=== PATIENT | female | born 1945 | race Caucasian/White ===

== ENCOUNTER 2016-11-30 10:02 | Emergency (ER) | payer MEDICARE ==
[2016-11-30 10:45] VITALS: TEMP 97.2
--- NOTE | 2016-11-30 11:04 | XR ---
EXAMINATION TYPE: XR knee complete LT DATE OF EXAM ORDERED: 11/30/2016 HISTORY: Pain. COMPARISON: None. FINDINGS: There is medial joint space loss. There are remodeling changes in all 3 compartments. Ther e is no evidence of chondrocalcinosis. No acute osseous lesion is seen. No joint effusion is seen. IMPRESSION: OSTEOARTHRITIS.
--- NOTE | 2016-11-30 12:18 | CT ---
EXAMINATION TYPE: CT knee LT wo con DATE OF EXAM: 11/30/2016 COMPARISON: Seen in the left knee x-ray HISTORY: Left knee injury or fall 3 weeks ago with persistent pain CT DLP: 456.90 mGycm Automated exposure control for dose reduction was used. FINDINGS: No acute fracture or dislocation in left knee is confirmed. There is moderate to severe tricompartmen t joint space loss and spurring, findings most pronounced medial tibiofemoral compartment. There is s ubchondral cystic change also present. There is spurring from anterior superior patellar distal quadr iceps tendon attachment. There is small suprapatellar joint effusion. There is 5 x 3 mm well-corticat ed ossific fragment near tibial condyles on coronal image 26 could reflect product of old trauma or o steoarthritis. No concerning focal fluid collection is seen. Muscle bulk is fairly well-maintained. IMPRESSION: NO ACUTE FRACTURE OR DISLOCATION IN LEFT KNEE IS EVIDENT.
[2016-11-30 12:29] VITALS: BP 152/71; PULSE 88; RESP 22
--- NOTE | 2016-11-30 12:50 | ED ---
General Adult HPI - General Chief complaint: Extremity Injury, Lower Stated complaint: left knee injury Time Seen by Provider: 11/30/16 10:42 Source: patient, RN notes reviewed Mode of arrival: wheelchair Limitations: no limitations - History of Present Illness Initial comments: Patient is 71-year-old female who presents emergency room today with chief complaint of left-sided knee pain. She does admit that she had a fall 2 weeks ago. States that today was locked up on her 7 difficult time extending history. States having to time ambulate. Denies any other complaints or symptoms. States she did talk to orthopedic doctor advised come here to the emergency room for evaluation. Patient denies any recent fever, chills, shortness of breath, chest pain, back pain, abdominal pain, nausea or vomiting, numbness or tingling, dysuria or hematuria, constipation or diarrhea, headaches or visual changes, or any other complaints. - Related Data Home Medications Medication Instructions Recorded Confirmed Calcium Carbonate/Vitamin D3 1 tab PO DAILY 11/30/16 11/30/16 [Calcium 600-Vit D3 400 Caplet] Ibuprofen [Motrin] 800 mg PO TID PRN 11/30/16 11/30/16 Leflunomide [Arava] 20 mg PO DAILY 11/30/16 11/30/16 Metoprolol Tartrate [Lopressor] 50 mg PO BID 11/30/16 11/30/16 Multivitamins, Thera [Multivitamin 1 tab PO DAILY 11/30/16 11/30/16 (formulary)] Simvastatin [Zocor] 40 mg PO HS 11/30/16 11/30/16 Ubidecarenone [Co Q-10] 100 mg PO DAILY 11/30/16 11/30/16 Vitamin B Complex 1 cap PO DAILY 11/30/16 11/30/16 predniSONE 1 mg PO DAILY 11/30/16 11/30/16 Previous Rx's Medication Instructions Recorded Hydrocodone/Acetaminophen [[place] 1 each PO Q6HR PRN #15 tab 11/30/16 5-325] Allergies Allergy/AdvReac Type Severity Reaction Status Date / Time codeine AdvReac Unknown Verified 11/30/16 11:06 Review of Systems ROS Statement: Those systems with pertinent positive or pertinent negative responses have been documented in the HPI. ROS Other: All systems not noted in ROS Statement are negative. Past Medical History Past Medical History: Rheumatoid Arthritis (RA) History of Any Multi-Drug Resistant Organisms: None Reported Past Surgical History: Back Surgery Additional Past Surgical History / Comment(s): oopherectomy Past Psychological History: No Psychological Hx Reported Smoking Status: Never smoker Past Alcohol Use History: None Reported Past Drug Use History: None Reported General Exam - General Exam Comments Initial Comments: General: The patient is awake and alert, in no distress, and does not appear acutely ill. Neck: The neck is supple, there is no tenderness or JVD. Cardiovascular: There is a regular rate and rhythm. No murmur, rub or gallop is appreciated. Respiratory: Lungs are clear to auscultation, respirations are non-labored, breath sounds are equal. No wheezes, stridor, rales, or rhonchi. Musculoskeletal: Normal appearance of left knee. Does show limited range of motion due to pain. Mild tenderness to the posterior lateral aspect. Negative Cait's. Negative valgus and varus stress. Sensation intact pulses equal bilaterally 2+. Strength 4/5 due to pain. Neurological: A&O x 3. CN II-XII intact, There are no obvious motor or sensory deficits. Coordination appears grossly intact. Speech is normal. Skin: Skin is warm and dry and no rashes or lesions are noted. Psychiatric: Normal mood and affect. Limitations: no limitations Course Vital Signs 11/30/16 11/30/16 11/30/16 10:13 10:41 11:18 Temperature 97.5 F L 97.2 F L Pulse Rate 78 74 70 Respiratory 18 16 18 Rate Blood Pressure 163/80 160/87 157/84 O2 Sat by Pulse 97 99 95 Oximetry 11/30/16 12:25 Temperature Pulse Rate 88 Respiratory 22 Rate Blood Pressure 152/71 O2 Sat by Pulse 95 Oximetry Medical Decision Making - Medical Decision Making X-ray and CT negative for any evidence of a fracture. Results were discussed with the patient. Patient will be discharged home advised follow-up with orthopedic doctor over the next 2 days. Disposition Clinical Impression: Knee pain Disposition: HOME SELF-CARE Condition: Good Instructions: Knee Pain (ED) Additional Instructions: Please use medication as discussed. Please follow-up with orthopedic/family doctor in the next 2 days of symptoms have not improved. Please return to emergency room if the symptoms increase or worsen or for any other concerns. Prescriptions: Hydrocodone/Acetaminophen [[place] 5-325] 1 each PO Q6HR PRN #15 tab PRN Reason: Pain Referrals: Rasta Darby MD [Primary Care Provider] - 1-2 days Sheldon Peck DO [Doctor of Osteopathic Medicine] - 1-2 days Time of Disposition: 12:50
== END 2016-11-30 13:04 | disposition home or self-care (01) ==
LOC: EC 10:02
DX: M25.562 Pain in left knee (principal); M06.9 Rheumatoid arthritis, unspecified; Z88.5 Allergy status to narcotic agent; Z79.52 Long term (current) use of systemic steroids; Z79.899 Other long term (current) drug therapy; W19.XXXA Unspecified fall, initial encounter
CPT/HCPCS: 99284